=== PATIENT | female | born 1990 | race Caucasian/White ===

== ENCOUNTER 2018-03-13 22:32 | Inpatient (IN) | payer OTHER ==
[2018-03-13 23:13] VITALS: BMI 39.7
[2018-03-13] MEDS ORDERED: NS / Oxytocin 40 units/1000ml 1,000 ML IV PRN (23:36)
[2018-03-13] MEDS ORDERED: Promethazine HCl 25 MG/ML VIAL IM PRN (23:36)
[2018-03-13] MEDS ORDERED: Ibuprofen 800 MG TAB PO PRN (23:36)
[2018-03-13] MEDS ORDERED: HYDROcodone/Acetaminophen 5/325 mg Tablet PO PRN ×2 (23:36)
[2018-03-13] MEDS ORDERED: Butorphanol Tartrate 1 MG/ML VIAL SLOW IVP PRN (23:36)
[2018-03-13] MEDS ORDERED: Lidocaine 1% (PF) 30 ML VIAL SC PRN (23:36)
--- NOTE | 2018-03-13 23:40 | PDOC.LDHP ---
Labor and Delivery H&P HPI: Patient of Dr Wylie here for CTX at 38 weeks 6 days EDC: 03/21/18 HPI: 28 yo at term with contractions for 1-2 hrs. No VB, no LOF, HX asthma. rates CTX 11/28. Good FM. Was 3cm last check in office Review of Systems: complete ROS completed and as per HPI Current gestational age (weeks): 38 (6 days) Due date: 03/21/18 Dating criteria: last menstrual period Grav: 5 Para: 4 OB History Details: SVDs Current complications: none Abnormal US findings: No Past Medical History: Asthma; anxiety/depression Current medications: pre- vitamins Previous surgical history: none Allergies/Adverse Reactions: Allergies Allergy/AdvReac Type Severity Reaction Status Date / Time No Known Allergies Allergy Verified 03/13/18 23:30 Social history: none - Physical Exam Vital signs reviewed and normal: yes (116/66 Temp 99) General: NAD, breathing through contractions Heart: RRR Lungs: CTAB Abdomen: gravid FHT: category 1 (FHTs are at 160-170s, good variability) [place] contractions every: every3-5 minutes - Vaginal Exam cm dilated: 3 Effacement: 50% Station: -1 - Assessment L&D Assessment: term patient in labor (early labor at full term (39 weeks in 15 minutes). Mild tachy may be prolonged accel...follow) - Plan Plan: admit to L&D, labor augmentation if indicated, informed consent obtained, anesthesia consult for pain management, other (Contact Dr Wylie for his admission)
[2018-03-13] MEDS: Lactated Ringer's 1,000 ML IV SCH (23:45)
[2018-03-14] MEDS ORDERED: Fentanyl 4 mcg/Bup 0.1% Cadd 100 ML ONE ×2 (00:46→08:21)
[2018-03-14 00:49] LABS: Hemoglobin 11.5 g/dL (12.0-16.0); Mean Corpuscular Hemoglobin 27.4 pg (27.0-31.0); Mean Corpuscular Volume 78.3 fL (78.0-98.0); Mean Platelet Volume 9.7 fL (7.4-10.4); Platelet Count 200 thou/uL (130-400); RBC Distribution Width 13.9 % (11.5-14.5); Red Blood Cell (RBC) Count 4.19 mill/uL (4.20-5.40); White Blood Cell (WBC) Count 10.7 thou/uL (4.8-10.8)
[2018-03-14 01:22] LABS: HBSAg Index 0.21 S/CO (0-0.99); HIV (1/2) Antibody/Antigen Non-Reactive (NonReactive); HIV 1/2 INDEX 0.11 S/CO (<1.00); Hep B Surf Ag Non-Reactive S/CO (NonReactive)
[2018-03-14] MEDS ORDERED: Eucerin (Mineral Oil/Petrolatum,White) 30 gm Jar TOP PRN (01:27)
[2018-03-14] MEDS ORDERED: Lactated Ringer's 500 ML IV PRN (01:27)
[2018-03-14] MEDS ORDERED: diphenhydrAMINE 50 MG/ML VIAL IVP PRN (01:27)
[2018-03-14] MEDS ORDERED: ePHEDrine/0.9% NaCl/PF SYRINGE 50 mg/10 ml SLOW IVP PRN (01:27)
[2018-03-14] MEDS ORDERED: Naloxone HCl 0.4 mg/ml Vial IVP PRN ×2 (01:27)
[2018-03-14] MEDS ORDERED: Ondansetron PF 4 MG/2 ML Vial IVP PRN ×2 (01:27→15:47)
[2018-03-14] MEDS ORDERED: Acetaminophen 325 MG TAB PO PRN (01:27)
[2018-03-14] MEDS ORDERED: Promethazine HCl 25 MG/ML VIAL IM PRN ×2 (01:27→15:47)
[2018-03-14 01:29] LABS: Syphilis Antibody Nonreactive (Nonreactive); Syphilis Antibody Index 0.05 S/CO (<1.00 Non-Reactive)
[2018-03-14] MEDS ORDERED: Fentanyl 4 mcg/Bupivacaine 0.1% Cassette 100 ML EPIDURAL SCH (01:30)
[2018-03-14] MEDS ORDERED: Communication Order-Pharmacy FS SCH (01:30)
[2018-03-14] MEDS: Lactated Ringer's 1,000 ML IV SCH ×3 (01:50→09:23)
[2018-03-14] MEDS ORDERED: NS w/ Oxytocin 10 units 500 ML ONE (10:12)
--- NOTE | 2018-03-14 10:14 | PDOC.EVN ---
Event Note - Event Note Event Note: Asked to AROM by Dr. jensen. Comfortable s/p epidural SVE remains 5-6 cm but head poorly applied to cervix. AROM deferred. Dr. Jensen notified.
[2018-03-14] MEDS ORDERED: Lidocaine 1% (PF) 30 ML VIAL SC PRN (10:33)
[2018-03-14] MEDS: NS / Oxytocin 40 units/1000ml 1,000 ML IV PRN ×2 (13:55→14:38)
--- NOTE | 2018-03-14 14:33 | OP ---
DATE OF PROCEDURE: 03/14/2018 PREOPERATIVE DIAGNOSIS: Intrauterine at 39 weeks and 0 days with spontaneous onset of labo r for this patient's fifth . POSTOPERATIVE DIAGNOSIS: Intrauterine at 39 weeks and 0 days with spontaneous onset of lab or for this patient's fifth . PROCEDURE: Spontaneous vaginal delivery over second-degree midline laceration of the perineum. FINDINGS: Viable female infant with Apgars of 8 and 9. QUANTITATIVE BLOOD LOSS: 234 mL. COMPLICATIONS: None. DETAILS OF THE PROCEDURE: The patient presented to [facility] where she was a dmitted to the Labor and Delivery service. The patient underwent a normal and uneventful labor with normal cervical dilatation until she was found to be completely dilated. She was then allowed to pus h and was able to bring the baby down and delivered the baby in a vertex presentation without difficu lties. Once the head delivered in occiput anterior position, the shoulders followed spontaneously al jasiel with the rest of the baby's body. Once out the baby's mouth and nose were bulb suctioned. The c ord was clamped and cut and baby was handed to waiting attendants. Cord blood was collected. Gentle Fundal massage was performed and the placenta delivered intact without problems. Hemostasis was ass ured. Quantitative blood loss was calculated. Inspection of the cervix, vaginal vault, and perineum did not reveal any lacerations needing suturing. Once again, hemostasis was within normal limits an d the patient was allowed to recover in the labor and delivery room. Baby went to nursery. A second degree midline laceration was repaired with 3-0 chromic using interrupted sutures without di fficulty. A previous right labia minora injury was noted prior to delivery, which did not sustain an y further injury.n
[2018-03-14] MEDS ORDERED: Benzocaine/Menthol 20-0.5% 60 ML CAN TOP PRN (15:47)
[2018-03-14] MEDS ORDERED: diphenhydrAMINE 25 MG CAP PO PRN (15:47)
[2018-03-14] MEDS ORDERED: Lanolin Ointment 7 GM TUBE TOP PRN (15:47)
[2018-03-14] MEDS ORDERED: NS / Oxytocin 40 units/1000ml 1,000 ML IV SCH (15:47)
[2018-03-14] MEDS ORDERED: Bisacodyl 10 MG SUPP PR PRN (15:47)
[2018-03-14] MEDS ORDERED: Zolpidem Tartrate 5 MG TAB PO PRN (15:47)
[2018-03-14] MEDS ORDERED: Misoprostol 200 MCG TAB VAG PRN (15:47)
[2018-03-14] MEDS ORDERED: Milk Of Magnesia 30 ML UDCUP PO PRN (15:47)
[2018-03-14] MEDS: HYDROcodone/Acetaminophen 5/325 mg Tablet PO PRN ×2 (16:45→23:54)
[2018-03-14] MEDS: Ferrous Sulfate 325 MG TAB PO SCH (17:27)
[2018-03-14] MEDS: Ibuprofen 800 MG TAB PO SCH (20:22)
[2018-03-14] MEDS: Docusate Calcium (SURFAK) 240 MG CAP PO SCH (20:22)
--- NOTE | 2018-03-15 02:29 | PDOC.PP ---
Post Progress Note Post Day #: PPD#1 Subjective: Resting. No c/o. PO intake tolerated: yes Ambulation: yes Vital Signs (12 hours) Temp Pulse Resp BP 03/14/18 18:15 90 20 99/54 L 03/14/18 17:15 86 18 98/54 L 03/14/18 16:15 97.7 F 90 18 106/63 03/14/18 16:00 97.9 F 96 14 133/60 Weight Weight 108.409 kg - Physical Examination General: NAD Respiratory: non-labored breathing Abdominal: no distention Neurological: no gross focal deficits Psychiatric: normal affect Result Diagrams: 03/14/18 00:10 Additional Labs: Post Labs Blood Type B POSITIVE 03/14/18 00:10 Hep Bs Antigen Non-Reactive S/CO (NonReactive) 03/14/18 00:10 - Assessment/Plan Doing well s/p . Routine care. Anticipate DC later PM or early AM 03/16.
[2018-03-15] MEDS ORDERED: Bupivacaine/Epinephrine 0.25% 30 ML VIAL ONE (06:19)
[2018-03-15] MEDS: Ibuprofen 800 MG TAB PO SCH ×3 (07:34→21:05)
[2018-03-15 07:35] LABS: Mean Corpuscular HGB CONC 34.3 g/dL (32.0-36.0); Mean Corpuscular Hemoglobin 27.5 pg (27.0-31.0); Mean Corpuscular Volume 80.4 fL (78.0-98.0); Mean Platelet Volume 9.4 fL (7.4-10.4); Platelet Count 171 thou/uL (130-400); RBC Distribution Width 13.8 % (11.5-14.5); Red Blood Cell (RBC) Count 3.28 mill/uL (4.20-5.40); White Blood Cell (WBC) Count 9.6 thou/uL (4.8-10.8)
[2018-03-15] MEDS ORDERED: Adacel (T-DAP) 0.5 ML VIAL IM ONE (09:00)
[2018-03-15] MEDS ORDERED: Varicella virus, LIVE 0.5 ML VIAL SC ONE (09:00)
[2018-03-15] MEDS ORDERED: Measles/Mumps/Rubella 10 MCG/0.5 ML VIAL SC ONE (09:00)
[2018-03-15] MEDS: Docusate Calcium (SURFAK) 240 MG CAP PO SCH ×2 (09:11→21:05)
[2018-03-15] MEDS: Prenatal Vitamin 1 TAB PO SCH (09:11)
[2018-03-15] MEDS: Ferrous Sulfate 325 MG TAB PO SCH ×3 (09:11→17:19)
[2018-03-15] MEDS: HYDROcodone/Acetaminophen 5/325 mg Tablet PO PRN ×2 (11:28→21:05)
[2018-03-16] MEDS: HYDROcodone/Acetaminophen 5/325 mg Tablet PO PRN ×2 (06:26→10:31)
[2018-03-16] MEDS: Ibuprofen 800 MG TAB PO SCH (06:26)
[2018-03-16 08:00] VITALS: BP 137/78; TEMP 97.6
[2018-03-16] MEDS: Prenatal Vitamin 1 TAB PO SCH (08:07)
[2018-03-16] MEDS: Docusate Calcium (SURFAK) 240 MG CAP PO SCH (08:07)
[2018-03-16] MEDS: Ferrous Sulfate 325 MG TAB PO SCH (08:07)
== END 2018-03-16 11:35 | disposition home or self-care (01) | DRG 807 ==
LOC: L&D/OP 22:32 → L&D 03-14 00:27 → 3SE 03-14 16:23
PROVIDERS: ADMIT Obstetrics & Gynecology; ATTEND Obstetrics & Gynecology
PROC: 10E0XZZ Delivery of Products of Conception, External Approach (ICD-10-PCS; principal; 2018-03-14)
DX: O69.81X0 Labor and delivery complicated by cord around neck, without compression, not applicable or unspecified (principal); Z37.0 Single live birth; O70.1 Second degree perineal laceration during delivery; Z3A.39 39 weeks gestation of pregnancy; O76 Abnormality in fetal heart rate and rhythm complicating labor and delivery
CPT/HCPCS: 36415; 51702; 85027; 86780; 86850; 86900; 86901; 87340; 87389; 99285; J2001

== ENCOUNTER 2019-10-23 14:19 | Emergency (ER) | payer SELFPAY | END 2019-10-23 15:21 | disposition home or self-care (01) | LOC: ERS 14:19 | DX: K08.89 Other specified disorders of teeth and supporting structures (principal); J45.909 Unspecified asthma, uncomplicated; E78.5 Hyperlipidemia, unspecified; E78.00 Pure hypercholesterolemia, unspecified; F41.9 Anxiety disorder, unspecified; F32.9 Major depressive disorder, single episode, unspecified; Z87.891 Personal history of nicotine dependence ==